=== PATIENT | male | born 1990 | race Hispanic/Latino ===

== ENCOUNTER 2022-06-14 11:20 | Emergency (ER) | payer OTHER ==
[~2022-06-14] VITALS: Ht 177.8 cm; Wt 90.7 kg
[2022-06-14] MEDS ORDERED: IBUPROFEN200 MG PO (11:42)
[2022-06-14] MEDS ORDERED: ACETAMINOPHEN500 MG PO (11:42)
== END 2022-06-14 11:45 | disposition home or self-care (01) ==
LOC: FSED 11:30
DX: S00.83XA Contusion of other part of head, initial encounter (principal); R51.9 Headache, unspecified; R11.0 Nausea; W22.8XXA Striking against or struck by other objects, initial encounter; Y92.89 Other specified places as the place of occurrence of the external cause
CPT/HCPCS: 99282